=== PATIENT | female | born 1990 | race Caucasian/White ===

== ENCOUNTER 2017-04-18 19:25 | Emergency (ER) | payer OTHER ==
[~2017-04-18] VITALS: Ht 172.7 cm; Wt 59.0 kg
[~2017-04-18 19:25] MED LIST: PROAIR HFA8.5 GM IH; VICODIN 5-5001 EACH PO
[2017-04-18 21:24] LABS: ABSOLUTE EOSINOPHILS 0.2 thou/uL (0.0-0.7); ABSOLUTE LYMPHOCYTES 3.4 thou/uL (0.8-5.3); ABSOLUTE MONOCYTES 0.8 thou/uL (0.0-1.2); BASOPHILS 0.4 %; HEMATOCRIT 39.9 % (37.0-47.0); HEMOGLOBIN 13.5 gm/dL (12.0-15.0); LYMPHOCYTES 35.9 %; MCHC 33.8 g/dL (28.0-37.0); MCV 88.7 fL (80.0-100.0); MONOCYTES 8.4 %; MPV 10.5 fl. (7.2-11.1); NUCLEATED RBCS 0 /100WBC; PLATELET COUNT* 224 thou/uL (150-400); POLYS 53.3 %; RDW-CV 12.7 % (10.5-14.5); WBC 9.4 thou/uL (4.0-11.0)
[2017-04-18 21:28] LABS: CALCIUM 8.8 mg/dL (8.5-10.1); CREATININE 0.7 mg/dL (0.6-1.3); POTASSIUM 3.4 mmol/L (3.5-5.1)
[2017-04-18 21:32] LABS: MAGNESIUM 1.9 mg/dL (1.8-2.4); TOTAL PROTEIN 7.3 g/dL (6.4-8.2)
[2017-04-18 22:14] VITALS: BP 112/64
--- NOTE | 2017-04-19 15:37 | EKG ---
[place] [address] ELECTROCARDIOGRAM REPORT Name: LISBETH LOZNAO Room: [facility]#: [id number] Admission: 04/18/17 Attend Phys: Discharge: 04/18/17 Date of : 86 Report #: [id number] THIS REPORT FOR: //name// [facility] ED Test Date: 2017-04-18 Test Time: 19:32:06 Pat Name: LISBETH LOZANO Department: Room: Gender: F Material [employer] Tester: TV : 1990 Requested By: Cleo Klein Order Number: [id number] MD: Awais Sawyer Measurements Intervals [place] Rate: 95 P: 72 ID: [id number] QRS: 80 QRSD: 88 T: 56 QT: 335 QTc: 421 Interpretive Statements Sinus rhythm Compared to ECG 09/08/2012 03:09:29 Sinus arrhythmia no longer present ST (T wave) deviation no longer present Electronically Signed On 04-19-2017 15:37:[address] MAG[address] by Awais Sawyer [email or web address] <ELECTRONICALLY SIGNED> By: Awais Sawyer MD, [facility] 04/19/17 1537 31 31 Awais Sawyer MD, FACC /EPI
== END 2017-04-18 22:14 | disposition home or self-care (01) ==
LOC: M.ERS 19:25
PROVIDERS: Personal Emergency Response Attendant
DX: R00.2 Palpitations (principal); J45.909 Unspecified asthma, uncomplicated